=== PATIENT | male | born 1985 | race Caucasian/White ===

== ENCOUNTER → 2016-04-20 | Outpatient (CLI) | payer BC ==
[~2016-04-20] MED LIST: ALPR1TAB2 PO; AMPH30TA2 PO; CATHETER FLUSH 10 ML SYR IV PRN; HYDR-3820 PO; IOHEXOL 350 MG/ML 100 ML (OMNIPAQUE 350) VIAL IV ONE; NS 100 ML (IVPB) BAG IV ONE; PANT40TA2 PO; RANI-515 PO; SULF1TAB35 PO; TAMS0.4C2 PO
--- OUTSIDE RECORDS SUMMARY | 2016-04-20 14:59 | XMS REPORT | Continuity of Care Document ---
Author Author Interface Organization Interface Address Unknown Phone Unavailable Problems Problem Status Onset Date Classification Date Reported Comments Source No data available for this section Problem 12/10/2015 [facility] Medications Medication Details Route Status Patient Instructions Ordering Provider Order Date Source No Known Medications No known medications Active [facility] Allergies, Adverse Reactions, Alerts Substance Category Reaction Severity Reaction type Status Date Reported Comments Source Immunizations Immunization Date Given Site Status Last Updated Comments Source No data available for this section No data available for this section [facility]. Results Order Name Results Value Reference Range Date Interpretation Comments Source Vital Signs Vital Sign Value Date Comments Source Encounters Location Location Details Encounter Type Encounter Number Reason For Visit Attending Provider ADM Date DC Date Status Source [facility] [id number] Emergency [id number] Sol Sofia 12/05/2015 12/05/2015 Active [facility], [facility], [facility] Emergency [id number] Nik Melendrez 12/05/2015 12/07/2015 [facility] Procedures Procedure Code Date Perfomer Comments Source inguinal hernia [facility].
--- NOTE | 2016-04-20 15:42 | Diagnostic Imaging Report ---
PROCEDURE: CT abdomen and pelvis with and without contrast. TECHNIQUE: Precontrast acquisitions were acquired through the abdomen and pelvis. Multiple contiguous axial images were obtained through the abdomen and pelvis after the administration of intravenous contrast. INDICATION: Microscopic hematuria. FINDINGS: The lung bases are clear. The liver appears normal. Gallbladder is normal. Bile ducts are not dilated. The pancreas and spleen appear normal. The noncontrasted images show multiple calculi scattered throughout the calyces of both kidneys. Largest measure approximately 7 mm. There is no evidence of renal obstruction at this time. The ureters appear normal. Following IV contrast injection, there is normal enhancement of the aorta and abdominal vessels. The abdominal organs enhance in a normal fashion. Symmetrical nephrogram effect. There are no solid renal masses. No intra-abdominal adenopathy. Small bowel is not dilated. Normal stool and gas pattern is noted. There is a small appendicolith present though appendix is not inflamed at this time. There is no free air or free fluid. IMPRESSION: 1. Multiple small calculi scattered throughout the calyces of both kidneys with no evidence for renal obstruction or masses at this time. 2. There is an appendicolith in the appendix though the appendix does not appear inflamed. Dictated by: Dictated on workstation # [id number]
== END ==
LOC: RAD 14:56
PROVIDERS: ATTEND Urology
DX: R31.29 Other microscopic hematuria (principal); N46.9 Male infertility, unspecified; N20.0 Calculus of kidney
CPT/HCPCS: 74178; 89320

== ENCOUNTER 2016-05-08 05:49 | Outpatient (CLI) | payer BC ==
[~2016-05-08] VITALS: Ht 180.3 cm; Wt 81.6 kg
[~2016-05-08 05:49] MED LIST changes: -ALPR1TAB2 PO; -AMPH30TA2 PO; -CATHETER FLUSH 10 ML SYR IV PRN; -HYDR-3820 PO; -IOHEXOL 350 MG/ML 100 ML (OMNIPAQUE 350) VIAL IV ONE; -NS 100 ML (IVPB) BAG IV ONE; -PANT40TA2 PO; -RANI-515 PO; -TAMS0.4C2 PO
[2016-05-08] MEDS ORDERED: AMPH30TA2 PO (12:27)
[2016-05-08] MEDS ORDERED: HYDR-3820 PO (12:27)
[2016-05-08] MEDS ORDERED: ALPR1TAB2 PO (12:27)
[2016-05-08] MEDS ORDERED: TAMS0.4C2 PO (12:27)
[2016-05-08] MEDS ORDERED: RANI-515 PO (12:29)
[2016-05-10] MEDS ORDERED: PANT40TA2 PO (10:53)
== END 2016-05-08 12:39 ==
LOC: PREOP 05:49
PROVIDERS: ATTEND Surgery
DX: Z01.818 Encounter for other preprocedural examination (principal); K92.1 Melena

== ENCOUNTER → 2016-05-09 | Outpatient (CLI) | payer BC ==
[~2016-05-09] MED LIST changes: +ALPR1TAB2 PO; +AMPH30TA2 PO; +HYDR-3820 PO; +PANT40TA2 PO; +RANI-515 PO; +TAMS0.4C2 PO
--- NOTE | 2016-05-09 08:25 | Diagnostic Imaging Report ---
PROCEDURE: US Gallbladder. TECHNIQUE: Multiple real-time grayscale images were obtained over the right upper quadrant in various projections. INDICATION: Right upper quadrant pain. FINDINGS: The visualized portions of the pancreas appear unremarkable. No focal lesion is seen in the liver. There is normal caliber of the CBD at 4 mm. The gallbladder demonstrates no stones or wall thickening. No pericholecystic fluid is seen. The right kidney is 10.2 CM in extent with no hydronephrosis or focal lesion. No fluid collection in the upright abdomen seen. Sonographic Badillo sign is reportedly negative. IMPRESSION: Unremarkable exam. Dictated by: Dictated on workstation # [id number]
== END ==
LOC: RAD 07:28
PROVIDERS: ATTEND Surgery
DX: R10.11 Right upper quadrant pain (principal)
CPT/HCPCS: 76705

== ENCOUNTER → 2016-05-10 | Day surgery (SDC) | payer BC ==
[~2016-05-10] VITALS: Ht 180.3 cm; Wt 81.6 kg
[~2016-05-10] MED LIST changes: +FLUMAZENIL (ROMAZICON) 0.1 MG/ML 5 ML VIAL INJ PRN; +HURRICAINE EXT TUBE (BENZOCAINE) ONE; +HURRICAINE EXT TUBE (BENZOCAINE) XX PRN; +MIDAZOLAM 2 MG/2 ML (VERSED) VIAL ONE; +NALOXONE 0.4 MG/ML 1 ML (NARCAN) VIAL IVP PRN; +NS IV 500 ML 500 ML IV PRN; +NS IV 500 ML 500 ML ONE; +fentaNYL INJECTION 100 MCG/2 ML AMP ONE; +proPOfol 200 MG/20 ML (DIPRIVAN) VIAL IV ONE
[2016-05-10 09:14] VITALS: BP 120/75
[2016-05-10] MEDS: fentaNYL INJECTION 100 MCG/2 ML AMP IVP PRN ×2 (10:34→10:36)
[2016-05-10] MEDS: MIDAZOLAM 2 MG/2 ML (VERSED) VIAL IVP PRN ×4 (10:35→10:41)
--- NOTE | 2016-05-10 10:42 | Pre-Op Note & Conscious Sedat ---
Pre-Operative Progress Note H&P Reviewed The H&P was reviewed, patient examined and no changes noted. Date H&P Reviewed: May 10, 2016 Time H&P Reviewed: 10:41 Pre-Op Diagnosis: epigastric pain and melena Conscious Sedation Pre-Proced ASA Class: 1 Airway Mallampati Classification: (kake appropriate class) I. II. III, IV Lungs Heart ASA score ASA 1: a normal healthy patient ASA 2: a patient with a mild systemic disease (mid diabetes, controlled hypertension, obesity ASA 3: a patient with a severe systemic disease that limits activity (angina , COPD, prior Myocardial infarction) ASA 4: a patient with an incapacitating disease that is a constant threat to life (CHF, renal failure) ASA 5: a moribund patient not expected to survive 24 hrs. (ruptured aneurysm) ASA 6: a declared brain patient whose organs are being harvested. For emergent operations, add the letter E after the classification Grade 1 Sedation Plan: Discussed options with patient/fam Note The patient is an appropriate candidate to undergo the planned procedure, sedation, and anesthesia. The patient immediately re-assessed prior to indication. MARILY KUMAR MD May 10, 2016 10:42 am
--- NOTE | 2016-05-10 10:52 | Progress Note-Post Operative ---
Post-Operative Progess Note Pre-Operative Diagnosis epigastric pain and melena Post-Operative Diagnosis 1 mm distal gastric erosion Post-Op Procedure Note Date of Procedure: May 10, 2016 Name of Procedure: EGD with antral biopsy Anesthesia Type sedation Specimen(s) collected antral mucosa MARILY KUMAR MD May 10, 2016 10:52 am
--- NOTE | 2016-05-10 10:54 | Discharge Inst-Simple/Standard ---
Discharge Inst-Standard Discharge Medications New, Converted or Re-Newed RX: RX on Chart Patient Instructions/Follow Up Plan of Care/Instructions/FU: ffollow-up with me in 1 month Activity as Tolerated: Yes Discharge Diet: No Restrictions MARILY KUMAR MD May 10, 2016 10:54 am
[2016-05-10 11:15] VITALS: BP 131/87
[2016-05-10 11:45] VITALS: BP 122/77
[2016-05-10 12:15] VITALS: BP 122/77
--- NOTE | 2016-05-11 12:12 | PROCEDURE REPORT ---
PROCEDURE PHYSICIAN: MARILY KUMAR DATE OF PROCEDURE: 05/10/2016 PROCEDURE: Upper GI endoscopy with antral biopsy. SURGEON: Mirza. INDICATION FOR THE PROCEDURE: This gentleman is being investigated for epigastric pain and episodes of melena. An upper endoscopy was offered as part of the evaluation. Informed consent was obtained after reviewing the procedure in detail. DESCRIPTION OF PROCEDURE: He was placed in left lateral decubitus position and his vital signs were monitored. Conscious sedation was achieved using propofol infusion by our anesthesiologist. The flexible gastroscope was then introduced down the esophagus, past the stomach, into the proximal duodenum. FINDINGS: STOMACH: A 1 mm erosion at the distal stomach. Photodocumentation and biopsy for Helicobacter pylori were obtained. DUODENUM: Normal. He tolerated the procedure well and was taken back to the nursing area in a stable condition. IMPRESSION: 1. Epigastric pain and melena. 2. A small gastric erosion. 3. Helicobacter status pending. Job ID: [id number] Dictated Date: 05/10/2016 10:52:10 [employer] Date: 05/11/2016 12:09:15 / princess SARMIENTO
== END | disposition home or self-care (01) ==
LOC: ENDO 08:30
PROVIDERS: ATTEND Surgery
DX: K92.1 Melena (principal); K25.9 Gastric ulcer, unspecified as acute or chronic, without hemorrhage or perforation
CPT/HCPCS: 88305

== ENCOUNTER → 2019-11-24 | Outpatient (CLI) | payer MEDICAID ==
[~2019-11-24] MED LIST changes: +ACHYD1T PO; -FLUMAZENIL (ROMAZICON) 0.1 MG/ML 5 ML VIAL INJ PRN; -HURRICAINE EXT TUBE (BENZOCAINE) ONE; -HURRICAINE EXT TUBE (BENZOCAINE) XX PRN; -HYDR-3820 PO; -MIDAZOLAM 2 MG/2 ML (VERSED) VIAL ONE; -NALOXONE 0.4 MG/ML 1 ML (NARCAN) VIAL IVP PRN; -NS IV 500 ML 500 ML IV PRN; -NS IV 500 ML 500 ML ONE; -RANI-515 PO; +RANI-609 PO; -fentaNYL INJECTION 100 MCG/2 ML AMP ONE; -proPOfol 200 MG/20 ML (DIPRIVAN) VIAL IV ONE
--- NOTE | 2019-11-24 19:13 | Diagnostic Imaging Report ---
INDICATION: Right wrist pain post injury AP, oblique, and lateral views of the right wrist are obtained. No fracture or acute bony abnormality is seen. Joint spaces are unremarkable. IMPRESSION: Negative right wrist. Dictated by: Dictated on workstation # [id number]
== END ==
LOC: RAD FS 16:31
PROVIDERS: ATTEND Nurse Practitioner Family
DX: M25.531 Pain in right wrist (principal)
CPT/HCPCS: 73110

== ENCOUNTER 2019-12-21 10:09 | Outpatient (RCR) | payer OTHER | END 2020-01-06 14:33 | disposition home or self-care (01) | PROVIDERS: ATTEND Orthopaedic Surgery | DX: M25.511 Pain in right shoulder (principal); M25.512 Pain in left shoulder ==

== ENCOUNTER → 2020-03-02 | Outpatient (CLI) | payer OTHER | LOC: LAB FS 10:27 | PROVIDERS: ATTEND Orthopaedic Surgery | DX: Z01.812 Encounter for preprocedural laboratory examination (principal); Z20.828 Contact with and (suspected) exposure to other viral communicable diseases | CPT/HCPCS: 87635 ==

== ENCOUNTER 2020-06-07 13:24 | Outpatient (RCR) | payer OTHER | END 2020-07-11 15:24 | disposition home or self-care (01) | PROVIDERS: ATTEND Nurse Practitioner Family | DX: S43.432D Superior glenoid labrum lesion of left shoulder, subsequent encounter (principal); S46.011D Strain of muscle(s) and tendon(s) of the rotator cuff of right shoulder, subsequent encounter; Z98.890 Other specified postprocedural states ==

== ENCOUNTER 2020-08-30 06:58 | Emergency (ER) | payer OTHER ==
[~2020-08-30] VITALS: Ht 180 cm; Wt 103.0 kg
[2020-08-30 17:00] VITALS: BP 146/84
--- NOTE | 2020-08-30 17:27 | ED Upper Extremity ---
General Chief Complaint: Upper Extremity Stated Complaint: LT SHOULDER INJ Nursing Triage Note: LEFT SHOULDER PAIN AFTER FALLING DOWN 3 STEPS ABOUT 4 HOURS AGO. HURTS TO LIFT UP. Nursing Sepsis Screen: No Definite Risk History of Present Illness Date Seen by Provider: Aug 30, 2020 Time Seen by Provider: 17:15 Initial Comments 35 y/o male presents w left shoulder pain after a stumble (without falling) down the steps. He had R shoulder surgery in February 2020 and is still protective of it. While going down the steps, he stumbled and grabbed onto the rail w his left hand and while falling forward caught himself with left arm preventing a fall, but bending his left shoulder back causing a popping/ tearing sensation and pain. Now w pain moving his left shoulder. Came directly to ER for eval. PCP- Dr Cano Allergies and Home Medications Allergies Coded Allergies: No Known Drug Allergies (Unverified , 05/08/16) Home Medications Alprazolam 1 Mg Tablet, 1 MG PO PRN, (Reported) Dextroamphetamine/Amphetamine 30 Mg Tablet, 30 MG PO DAILY, (Reported) Hydrocodone Bit/Acetaminophen 1 Each Tablet, 1 EACH PO PRN, (Reported) Hydrocodone/Acetaminophen 1 Each Tablet, 1 EACH PO Q4H Prescribed by: MIRZA WHEATLEY on 08/30/20 1728 Ibuprofen 800 Mg Tablet, 800 MG PO Q8H PRN for PAIN Prescribed by: MIRZA WHEATLEY on 08/30/20 1728 Pantoprazole Sodium 40 Mg Tablet.dr, 40 MG PO DAILY Prescribed by: MARILY KUMAR on 05/10/16 1053 Tamsulosin HCl 0.4 Mg Cap.er.24h, 0.4 MG PO DAILY, (Reported) Patient Home Medication List Home Medication List Reviewed: Yes Review of Systems Constitutional: No dizziness, No fever, No malaise, No weakness EENTM: no symptoms reported Respiratory: No cough, No short of breath Cardiovascular: No chest pain, No edema, No palpitations, No syncope Gastrointestinal: no symptoms reported Musculoskeletal: see HPI, joint pain, joint swelling, muscle pain, muscle s tiffness; No neck pain Psychiatric/Neurological: Denies Numbness, Denies Paresthesia, Denies Weakness Past Rfewdwu-Xedetn-Srgpcu Hx Past Med/Social Hx: Reviewed Nursing Past Med/Soc Hx Patient Social History Alcohol Use: Denies Use Smoking Status: Current Everyday Smoker Type Used: Electronic/Vapor Former Smoker, Quit: Apr 30, 2016 Recent Infectious Disease Expo: No Recent Hopitalizations: No Seasonal Allergies Seasonal Allergies: No Past Medical History Surgeries: Yes (BILAT INGUINAL HERNIAS) Respiratory: Yes ( A CHILD) Asthma Cardiac: No Neurological: No Reproductive Disorders: No Sexually Transmitted Disease: No HIV/AIDS: No Prostate Problems, Kidney Stones Gastrointestinal: Yes (BLOOD IN STOOLS) Gastroesophageal Reflux, Chronic Constipation, Chronic Diarrhea Musculoskeletal: Yes (SHOULDERS) Arthritis Endocrine: No Loss of Vision: Denies Hearing Impairment: Denies Cancer: No Psychosocial: Yes Anxiety Integumentary: No Blood Disorders: No Adverse Reaction/Blood Tranf: No (HAS HAD BLOOD WITH NO PROBLEMS) Physical Exam Vital Signs Vital Signs - First Documented 08/30/20 17:00 Temp 35.8 Pulse 114 Resp 18 B/P (MAP) 146/84 (104) Pulse Ox 99 O2 Delivery Room Air Capillary Refill : Less Than 3 Seconds Height, Weight, BMI Height: 5'11.00" Weight: 180lbs. 0.0oz. [id number]; 31.00 BMI Method: General Appearance: WD/WN, no apparent distress Neck: non-tender, full range of motion, supple Shoulder: normal inspection; No bone tenderness, No deformity, No ecchymosis; limited ROM, pain, soft tissue tenderness, swelling Elbow/Forearm: normal inspection, non-tender, no evidence of injury, normal ROM, Left Wrist: Yes normal inspection, Yes non-tender, Yes no evidence of injury, Yes normal ROM Hand: normal inspection, non-tender, no evidence of injury, normal ROM, Left Neurologic/Tendon: normal sensation, normal motor functions Neurologic/Psychiatric: no motor/sensory deficits, alert, normal mood/affect, oriented x 3 Skin: normal color, warm/dry Progress/Results/Core Measures Results/Orders My Orders Orders - MIRZA WHEATLEY DO Shoulder 3 View Left (08/30/20 17:21) Vital Signs/I&O 08/30/20 17:00 Temp 35.8 Pulse 114 Resp 18 B/P (MAP) 146/84 (104) Pulse Ox 99 O2 Delivery Room Air Blood Pressure Mean: 104 Diagnostic Imaging Comments Date of Exam:08/30/20 SHOULDER 3 VIEW LEFT INDICATION: Injury. Pain. COMPARISON: None. FINDINGS: 3 views of the left shoulder were obtained. There is no fracture, dislocation, or other acute bony abnormality identified. The soft tissues appear unremarkable. No radiopaque foreign bodies identified. The visualized portions of the left lung are clear. IMPRESSION: No acute fractures or dislocations of the left shoulder. Dictated on workstation # [id number] Dict: 08/30/20 1752 Trans: 08/30/20 1753 [facility] [id number] Interpreted by: CHELY COLIN MD Electronically signed by: Departure Impression Primary Impression: Left shoulder tendonitis Disposition: HOME, SELF-CARE Condition: Stable Departure-Patient Inst. Decision time for Depature: 17:26 Referrals: PRASANNA CANO DO (PCP/Family) Primary Care Physician Patient Instructions: Tendonitis (DC) Add. Discharge Instructions: Call Dr Cano to schedule a follow up appointment in 1 week. All discharge instructions reviewed with patient and/or family. Voiced unde rstanding. Scripts Ibuprofen (Ibuprofen) 800 Mg Tablet 800 MG PO Q8H PRN for PAIN, #30 TAB 0 Refills Prov: MIRZA WHEATLEY DO 08/30/20 Hydrocodone/Acetaminophen (Hydrocodone-Acetamin 5-325 mg) 1 Each Tablet 1 EACH PO Q4H for Abdominal Pain, #10 TAB Prov: MIRZA WHEATLEY DO 08/30/20 MIRZA WHEATLEY DO Aug 30, 2020 17:27
[2020-08-30] MEDS ORDERED: IBUP-1780 PO (17:28)
[2020-08-30] MEDS ORDERED: ACHD5005 PO (17:28)
--- NOTE | 2020-08-30 17:54 | Diagnostic Imaging Report ---
INDICATION: Injury. Pain. COMPARISON: None. FINDINGS: 3 views of the left shoulder were obtained. There is no fracture, dislocation, or other acute bony abnormality identified. The soft tissues appear unremarkable. No radiopaque foreign bodies identified. The visualized portions of the left lung are clear. IMPRESSION: No acute fractures or dislocations of the left shoulder. Dictated by: Dictated on workstation # [id number]
== END 2020-08-30 17:38 | disposition home or self-care (01) ==
LOC: EDUNIT# 16:57 → ER FS 16:59
DX: M77.8 Other enthesopathies, not elsewhere classified (principal); J45.909 Unspecified asthma, uncomplicated; K21.9 Gastro-esophageal reflux disease without esophagitis; F41.9 Anxiety disorder, unspecified; F17.290 Nicotine dependence, other tobacco product, uncomplicated; Z79.899 Other long term (current) drug therapy
CPT/HCPCS: 73030

== ENCOUNTER → 2020-09-07 | Outpatient (CLI) | payer OTHER ==
[~2020-09-07] MED LIST changes: +ACHD5005 PO; +IBUP-1780 PO
--- NOTE | 2020-09-07 17:30 | Diagnostic Imaging Report ---
INDICATION: Abdominal pain. EXAMINATION: Pelvis. FINDINGS: AP view pelvis shows some linear calcifications in the distal left ureteral distribution that could be ureteral calculi. These measure 1.7 cm in length and 2.5 mm in diameter. There are also some phleboliths in the pelvis. IMPRESSION: Probable distal left ureteral calculi. Dictated by: Dictated on workstation # [id number]
== END ==
LOC: RAD FS 16:55
PROVIDERS: ATTEND Nurse Practitioner Family
DX: N20.9 Urinary calculus, unspecified (principal)
CPT/HCPCS: 72170